=== PATIENT | female | born 1995 | race Caucasian/White ===

== ENCOUNTER → 2018-08-31 | Outpatient (REF) | payer MEDICAID | LOC: M SFHCLERA 19:02 | PROVIDERS: ATTEND Nurse Practitioner Family | DX: R50.9 Fever, unspecified (principal) ==

== ENCOUNTER → 2018-09-27 | Outpatient (REF) | payer MEDICAID | LOC: M SFHCLERA 20:36 | PROVIDERS: ATTEND Nurse Practitioner Family | DX: J02.9 Acute pharyngitis, unspecified (principal) ==

== ENCOUNTER → 2018-11-07 | Outpatient (CLI) | payer MEDICAID, OTHER ==
--- NOTE | 2018-11-07 15:25 | REP ---
RIGHT FOOT, FOUR VIEWS: HISTORY: Foot pain. There is no acute fracture or dislocation. The joint spaces are normal in appearance. IMPRESSION: There is no acute fracture or dislocation. Electronically Signed by Apollo Aly MD 11/07/2018 03:28 P
== END ==
LOC: M LRY 14:40
PROVIDERS: ATTEND Nurse Practitioner Family
DX: M79.671 Pain in right foot (principal)

== ENCOUNTER → 2019-02-15 | Outpatient (REF) | payer OTHER, MEDICAID ==
[2019-02-15 21:50] LABS: CHLAMYDIA DNA AMPLIFICATION NEGATIVE (NEGATIVE); GC DNA AMPLIFICATION NEGATIVE (NEGATIVE)
== END ==
LOC: M SFHCLERA 13:40
PROVIDERS: ATTEND Nurse Practitioner Family
DX: R30.0 Dysuria (principal)

== ENCOUNTER → 2019-02-17 | Outpatient (REF) | payer OTHER, MEDICAID | LOC: M LAB REF 17:14 | PROVIDERS: ATTEND Advanced Practice Midwife | DX: Z12.4 Encounter for screening for malignant neoplasm of cervix (principal) ==

== ENCOUNTER → 2019-04-05 | Outpatient (REF) | payer OTHER, MEDICAID | LOC: M SFHCLERA 13:17 | PROVIDERS: ATTEND Physician Assistant | DX: J02.9 Acute pharyngitis, unspecified (principal) ==

== ENCOUNTER → 2019-04-10 | Outpatient (REF) | payer OTHER, MEDICAID | LOC: M SFHCLERA 16:39 | PROVIDERS: ATTEND Nurse Practitioner Family | DX: J03.90 Acute tonsillitis, unspecified (principal) ==

== ENCOUNTER → 2019-04-17 | Outpatient (REF) | payer OTHER, MEDICAID | LOC: M SFHCLERA 15:04 | PROVIDERS: ATTEND Nurse Practitioner Family | DX: Z53.29 Procedure and treatment not carried out because of patient's decision for other reasons (principal); E03.9 Hypothyroidism, unspecified ==